=== PATIENT | female | born 2000 | race Caucasian/White ===

== ENCOUNTER 2024-11-18 07:10 | Emergency (ER) | payer SELFPAY ==
[2024-11-18 07:33] LABS: APPEARANCE,URINE SLT CLOUDY; GLUCOSE,URINE NEGATIVE (NEGATIVE); OCCULT BLOOD,URINE LARGE (NEGATIVE)
[2024-11-18 07:44] LABS: EPITHELIAL CELLS,URINE MODERATE (NONE-FEW)
== END 2024-11-18 07:56 | disposition home or self-care (01) ==
LOC: MW.ED 07:10
DX: N93.9 Abnormal uterine and vaginal bleeding, unspecified (principal); R25.2 Cramp and spasm; Z79.899 Other long term (current) drug therapy; Z32.02 Encounter for pregnancy test, result negative
CPT/HCPCS: 36415; 81001; 81025; 84703; 99283; 99284